=== PATIENT | female | born 1955 | race Caucasian/White ===

== ENCOUNTER 2019-10-12 15:40 | Emergency (ER) | payer OTHER, MEDICAID ==
[~2019-10-12] VITALS: Ht 165.1 cm; Wt 76.2 kg
--- NOTE | 2019-10-12 15:55 | NUR ---
PT AMBULATED TO CHAIR A, STEADY GAIT.
[2019-10-12 15:57] VITALS: BP 154/92
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
--- NOTE | 2019-10-12 16:14 | NUR ---
PT MOVED TO BED 04
[2019-10-12] MEDS ORDERED: KETOROLAC 30 MG/ML VIAL IM ONE (16:30)
--- NOTE | 2019-10-12 16:38 | NUR ---
ELVIRA KNOX EXAMINING PT
[2019-10-12] MEDS ORDERED: BACITRACIN OINT 500 UNITS/GM PKT TP ONE (17:10)
[2019-10-12 17:23] VITALS: BP 154/92
--- NOTE | 2019-10-12 17:24 | NUR ---
Patient discharged with v/s stable. Written and verbal after care instructions given and explained. Patient alert, oriented and verbalized understanding of instructions. Ambulatory with steady gait. All questions addressed prior to discharge. ID band removed. Patient advised to follow up with PMD. Rx of KEFLEX AND BACITRACIN given. Patient educated on indication of medication including possible reaction and side effects. Opportunity to ask questions provided and answered.
== END 2019-10-12 17:24 | disposition home or self-care (01) ==
LOC: MED 15:40
DX: T31.0 Burns involving less than 10% of body surface (principal); X12.XXXA Contact with other hot fluids, initial encounter; E11.9 Type 2 diabetes mellitus without complications; F32.9 Major depressive disorder, single episode, unspecified; F41.9 Anxiety disorder, unspecified; Y93.89 Activity, other specified; Y92.89 Other specified places as the place of occurrence of the external cause; Y99.8 Other external cause status
CPT/HCPCS: 90471; 90715; 96372; 99283; J1885

== ENCOUNTER 2023-03-20 20:32 | Emergency (ER) | payer BC, MEDICAID ==
[~2023-03-20] VITALS: Ht 165.1 cm; Wt 68.0 kg
[2023-03-20 20:39] VITALS: BP 110/70; PULSE 90; RESP 16; TEMP 98.4; O2SAT 98
[2023-03-20 21:55] LABS: BASOPHILS # (AUTO) 0.1 K/uL (0.00-0.22); BASOPHILS % (AUTO) 1.1 % (0.0-2.0); EOSINOPHILS # (AUTO) 0.3 K/uL (0-0.4); EOSINOPHILS % (AUTO) 2.5 % (0.0-4.0); HEMATOCRIT 33.6 % (36-48); HEMOGLOBIN 11.6 g/dL (12.0-16.0); LYMPHOCYTES # (AUTO) 2.4 K/uL (2.5-16.5); LYMPHOCYTES % (AUTO) 21.7 % (20.5-51.1); MEAN CORPUSCULAR HEMOGLOBIN 31 pg (27-31); MEAN CORPUSCULAR HGB CONC 35 g/dL (33-37); MEAN CORPUSCULAR VOLUME 90.5 fL (80-94); MONOCYTES # (AUTO) 0.8 K/uL (0.8-1.0); NEUTROPHILS # (AUTO) 7.3 K/uL (1.8-7.7); NEUTROPHILS % (AUTO) 67.7 % (42.2-75.2); PLATELET COUNT (AUTO) 386 K/uL (140-450); RED BLOOD CELL COUNT(AUTO) 3.71 MIL/uL (4.20-5.40); RED CELL DISTRIBUTION WIDTH 14.6 % (11.6-13.7); WHITE BLOOD COUNT (AUTO) 10.8 K/uL (4.8-10.8)
[2023-03-20 22:17] LABS: ALBUMIN 3.8 g/dL (3.4-5.0); ANION GAP 15.3 (8-16); CALCIUM 9.5 mg/dL (8.5-10.1); CARBON DIOXIDE 24.5 mmol/L (21-32); CREATININE 0.8 mg/dL (0.6-1.3); POTASSIUM 3.8 mmol/L (3.5-5.1); TOTAL BILIRUBIN 0.2 mg/dL (0.0-1.0); TOTAL PROTEIN, SERUM 6.7 g/dL (6.4-8.2)
[2023-03-20] MEDS: ONDANSETRON 4 MG/2 ML VIAL IVP ONE (22:53)
[2023-03-20] MEDS: MORPHINE SULFATE 4 MG/ML SYR IVP ONE (22:57)
[2023-03-21] MEDS: SIMETHICONE 40 MG/0.6 ML PO ONE (01:31)
[2023-03-21 02:48] VITALS: BP 145/71; PULSE 82; RESP 16; TEMP 98.3; O2SAT 98
== END 2023-03-21 02:48 | disposition left against medical advice (07) ==
LOC: MED 20:32
DX: R07.9 Chest pain, unspecified (principal); M54.2 Cervicalgia; M25.512 Pain in left shoulder; E11.9 Type 2 diabetes mellitus without complications; I10 Essential (primary) hypertension; Z88.1 Allergy status to other antibiotic agents
CPT/HCPCS: 36415; 71045; 80053; 83880; 84484; 85025; 93005; 96374; 96375; 99285; J2270; J2405

== ENCOUNTER 2023-06-16 12:03 | Emergency (ER) | payer BC, MEDICAID ==
[~2023-06-16] VITALS: Ht 167.6 cm; Wt 72.6 kg
[2023-06-16 12:22] VITALS: BP 155/83; PULSE 71; RESP 18; TEMP 98; O2SAT 98
[2023-06-16] MEDS ORDERED: HYDR-5191 PO (12:53)
[2023-06-17] MEDS ORDERED: BUPR1FIL4 SL (12:48)
[2023-06-17] MEDS ORDERED: NAPR-1704 PO (12:49)
[2023-06-17] MEDS ORDERED: NALO4SPR NS (12:50)
== END 2023-06-16 13:09 | disposition home or self-care (01) ==
LOC: MED 12:03
DX: Z76.0 Encounter for issue of repeat prescription (principal); E11.9 Type 2 diabetes mellitus without complications; I10 Essential (primary) hypertension; Z88.1 Allergy status to other antibiotic agents; Z79.4 Long term (current) use of insulin; Z79.899 Other long term (current) drug therapy
CPT/HCPCS: 99281

== ENCOUNTER 2023-06-17 10:54 | Emergency (ER) | payer BC, MEDICAID ==
[~2023-06-17] VITALS: Ht 165.1 cm; Wt 68.0 kg
[~2023-06-17 10:54] MED LIST: HYDR-5191 PO
[2023-06-17 11:21] VITALS: BP 139/73; PULSE 66; RESP 16; TEMP 98.9; O2SAT 96
[2023-06-17] MEDS ORDERED: HYDROcodone/APAP 5/325 MG 1 TAB TAB PO ONE (12:00)
[2023-06-17] MEDS ORDERED: BUPR1FIL4 SL (12:48)
[2023-06-17] MEDS ORDERED: NAPR-1704 PO (12:49)
[2023-06-17] MEDS ORDERED: NALO4SPR NS (12:50)
== END 2023-06-17 13:15 | disposition home or self-care (01) ==
LOC: MED 10:54
DX: M54.50 Low back pain, unspecified (principal); F11.90 Opioid use, unspecified, uncomplicated; E11.9 Type 2 diabetes mellitus without complications; I10 Essential (primary) hypertension; Z79.4 Long term (current) use of insulin; Z79.899 Other long term (current) drug therapy; Z88.1 Allergy status to other antibiotic agents
CPT/HCPCS: 99283

== ENCOUNTER 2023-06-19 15:54 | Emergency (ER) | payer BC, MEDICAID ==
[~2023-06-19] VITALS: Ht 152.4 cm; Wt 68.0 kg
[~2023-06-19 15:54] MED LIST changes: +BUPR1FIL4 SL; +NALO4SPR NS; +NAPR-1704 PO
[2023-06-19 15:59] VITALS: BP 162/91; PULSE 73; RESP 18; TEMP 99; O2SAT 100
[2023-06-19 16:47] LABS: BASOPHILS % (AUTO) 0.1 % (0.0-2.0); EOSINOPHILS # (AUTO) 0.1 K/uL (0-0.4); EOSINOPHILS % (AUTO) 1.6 % (0.0-4.0); HEMATOCRIT 34.7 % (36-48); HEMOGLOBIN 12.2 g/dL (12.0-16.0); LYMPHOCYTES # (AUTO) 1.9 K/uL (2.5-16.5); LYMPHOCYTES % (AUTO) 23.8 % (20.5-51.1); MEAN CORPUSCULAR HEMOGLOBIN 32 pg (27-31); MEAN CORPUSCULAR HGB CONC 35 g/dL (33-37); MEAN CORPUSCULAR VOLUME 90.9 fL (80-94); MONOCYTES # (AUTO) 0.5 K/uL (0.8-1.0); MONOCYTES % (AUTO) 6.3 % (1.7-9.3); NEUTROPHILS # (AUTO) 5.3 K/uL (1.8-7.7); NEUTROPHILS % (AUTO) 68.2 % (42.2-75.2); PLATELET COUNT (AUTO) 431 K/uL (140-450); RED BLOOD CELL COUNT(AUTO) 3.82 MIL/uL (4.20-5.40); RED CELL DISTRIBUTION WIDTH 13.2 % (11.6-13.7); WHITE BLOOD COUNT (AUTO) 7.8 K/uL (4.8-10.8)
[2023-06-19] MEDS ORDERED: HYDROcodone/APAP 5/325 MG 1 TAB TAB PO ONE (17:05)
[2023-06-19 17:12] LABS: CALCIUM 9.4 mg/dL (8.5-10.1); CARBON DIOXIDE 23.7 mmol/L (21-32); CREATININE 0.8 mg/dL (0.6-1.3); POTASSIUM 3.7 mmol/L (3.5-5.1)
[2023-06-19] MEDS ORDERED: ACET-9525 PO (17:46)
[2023-06-19 18:02] VITALS: BP 152/90; PULSE 73; RESP 18; TEMP 98; O2SAT 100
== END 2023-06-19 18:04 | disposition home or self-care (01) ==
LOC: MED 15:54
DX: R07.9 Chest pain, unspecified (principal); E11.9 Type 2 diabetes mellitus without complications; I10 Essential (primary) hypertension; Z79.899 Other long term (current) drug therapy; Z79.1 Long term (current) use of non-steroidal anti-inflammatories (NSAID); Z88.0 Allergy status to penicillin
CPT/HCPCS: 36415; 71045; 80048; 84484; 85025; 85379; 93005; 99285; Q0092; 99284

== ENCOUNTER 2024-02-05 17:25 | Emergency (ER) | payer BC, MEDICAID ==
[~2024-02-05] VITALS: Ht 165.1 cm; Wt 68.0 kg
[~2024-02-05 17:25] MED LIST changes: +ACET-9525 PO; +HYDR-5071 PO; -HYDR-5191 PO
[2024-02-05 17:54] VITALS: BP 171/73; PULSE 86; RESP 16; TEMP 98.1; O2SAT 98
[2024-02-05 19:20] VITALS: BP 153/58; PULSE 82; RESP 18; O2SAT 95
[2024-02-05] MEDS: MORPHINE SULFATE 4 MG/ML SYR IM ONE (20:11)
== END 2024-02-05 20:15 | disposition home or self-care (01) ==
LOC: MED 17:25
DX: G89.29 Other chronic pain (principal); M54.50 Low back pain, unspecified; E11.9 Type 2 diabetes mellitus without complications; I10 Essential (primary) hypertension; Z79.899 Other long term (current) drug therapy; Z88.0 Allergy status to penicillin
CPT/HCPCS: 96372; 99283; J2270